=== PATIENT | female | born 1990 | race Caucasian/White ===

== ENCOUNTER 2017-12-20 00:37 | Emergency (ER) | payer OTHER, MEDICAID ==
--- NOTE | 2017-12-20 01:55 | ERNOTE ---
Abdominal HPI - General Chief Complaint: Abdominal Pain Time Seen by Provider: 12/20/17 01:50 Source: patient, RN notes reviewed Exam Limitations: no limitations - Immun/Allergies/Home Medications Immunizatons: IMMUNIZATION HX Immunizations Up to Date Yes History of Influenza Vaccine No Hx Pneumococcal Vaccination No Allergies/Adverse Reactions: Allergies amoxicillin [Amoxicillin] Allergy (Verified 12/20/17 00:52) Home Medications: HOME MEDICATIONS Ibuprofen [Motrin] 200 - 800 mg PO Q6H PRN #100 tab 07/13/16 [Last Taken Unknown ] HYDROcodone/ACETAMINOPHEN [[place] 5-325 Tablet] 1 - 2 tab PO Q6H PRN #16 tab [Last Taken Unknown] - History of Present Illness Narrative: Patient with lower abdominal pain for the last two months, that has worsened in the last 2 days. She thinks that it might be an ovarian cyst as this is similar pain to an ovarian cyst she had in the past. Timing: constant, getting worse Quality: moderate, aching, cramping Activities at Onset: none Modifying Factors - (Improves): Present: lying down Modifying Factors - (Worsens): Present: coughing, defecating, movement, exercise Associated Symptoms: Present: denies symptoms Prior Abdominal Problems: Present: similar symptoms Review of Systems - Review of Systems Constitutional: Absent: recent illness, fever, chills EYE: Present: no symptoms reported ENT: Absent: ear pain, sore throat Respiratory: Absent: shortness of breath, cough Cardiology: Absent: chest pain Gastrointestinal/Abdominal: Present: abdominal pain - left lower quadrant radiating medially. Absent: nausea, vomiting, diarrhea Genitourinary: Present: no symptoms reported Musculoskeletal: Absent: back pain, muscle pain, muscle stiffness Skin: Present: no symptoms reported Neurological: Present: no symptoms reported - Patient's Past Medical History Patient History - Medical: No pertinent hx Patient History - Cardiac/Respiratory: No pertinent hx Patient History - Cancer: No Hx of Cancer Patient History - Surgical Procedures: , T & A - Social History Living Situations: spouse Psych History: No pertinent hx Smoking Status: Never smoker Alcohol Use: occasionally Drug Use: none - Immunizations Immunizations Up to Date: Yes Hx Pneumococcal Vaccination: No History of Influenza Vaccine: No Physical Exam - Physical Exam General Appearance: Present: wd/wn, alert, moderate distress, obese Head Exam: Present: normal inspection, no evidence of injury Eye Exam: Normal inspection: bilateral, PERRL: bilateral, EOMI: bilateral Ears, Nose, Throat: Present: normal ENT inspection Neck: Present: normal inspection, nontender Respiratory: Present: no respiratory distress, normal breath sounds, no accessory muscle use, lungs clear Cardiovascular/Chest: Present: regular rate, rhythm, no murmur, normal peripheral pulses Gastrointestinal/Abdominal: Present: normal bowel sounds, nontender, nondistended, soft Pelvic Exam: Present: tender adnexa - left. Absent: active bleeding, discharge , lesions, cervical motion tendernes, tender uterus Back Exam: Present: normal inspection, normal range of motion Extremity Exam: Present: normal inspection, normal range of motion Neurological Exam: Present: alert, oriented, normal mood/affect, no motor/ sensory deficits Skin Exam: Present: normal color, warm/dry ED Progress - Results and Orders Patient's Lab Results:: I have reviewed the patient's lab results. Results and Orders: Laboratory Results - last 24 hr 12/20/17 12/20/17 12/20/17 02:10 02:10 02:10 WBC 10.9 H RBC 4.49 Hgb 12.9 Hct 38.7 MCV 86.2 MCH 28.7 MCHC 33.3 RDW 12.8 Plt Count 396 MPV 9.7 H Immature Gran % (Auto) 0.20 Immature Gran # (Auto) 0.02 Neutrophils % 54.9 Lymphocytes % 36.1 Monocytes % 5.1 Eosinophils % 3.2 H Basophils % 0.5 Nucleated RBC % 0.0 Neutrophils # 6.0 Lymphocytes # 3.9 H Monocytes # 0.6 Eosinophils # 0.4 Absolute Basophils 0.1 Sodium 140 Plasma Sodium 140 Potassium 3.9 Chloride 105 Carbon Dioxide 26.3 Anion Gap 12.6 BUN 13 Creatinine 0.86 Est GFR (Non-Af Amer) 85 BUN/Creatinine Ratio 15.1 Random Glucose 96 Calcium 9.2 Calcium Adj for Albumin 9.0 Total Bilirubin 0.3 AST 13 ALT 29 Alkaline Phosphatase 64 Total Protein 7.9 Albumin 3.9 Urine Color Urine Appearance Urine pH Ur Specific Accident Urine Protein Urine Glucose (UA) Urine Ketones Urine Blood Urine Nitrate Urine Bilirubin Urine Urobilinogen Ur Leukocyte Esterase Urine RBC Urine WBC Ur Epithelial Cells Urine Bacteria Urine Culture Comments Urine HCG, Qual Negative Urine Opiates Screen Barbiturate Screen Ur Phencyclidine Scrn Urine Amphetamine U Benzodiazepines Scrn Urine Cocaine Screen Urine Marijuana (THC) 12/20/17 12/20/17 02:10 02:10 WBC RBC Hgb Hct MCV MCH MCHC RDW Plt Count MPV Immature Gran % (Auto) Immature Gran # (Auto) Neutrophils % Lymphocytes % Monocytes % Eosinophils % Basophils % Nucleated RBC % Neutrophils # Lymphocytes # Monocytes # Eosinophils # Absolute Basophils Sodium Plasma Sodium Potassium Chloride Carbon Dioxide Anion Gap BUN Creatinine Est GFR (Non-Af Amer) BUN/Creatinine Ratio Random Glucose Calcium Calcium Adj for Albumin Total Bilirubin AST ALT Alkaline Phosphatase Total Protein Albumin Urine Color Pale yellow Urine Appearance Clear Urine pH 6.0 Ur Specific Accident 1.020 Urine Protein Negative Urine Glucose (UA) Negative Urine Ketones Negative Urine Blood Negative Urine Nitrate Negative Urine Bilirubin Negative Urine Urobilinogen Normal Ur Leukocyte Esterase Negative Urine RBC 0-5 Urine WBC 0-5 Ur Epithelial Cells 0-5 Urine Bacteria None seen Urine Culture Comments No culture indicated Urine HCG, Qual Urine Opiates Screen Negative Barbiturate Screen Negative Ur Phencyclidine Scrn Negative Urine Amphetamine Negative U Benzodiazepines Scrn Negative Urine Cocaine Screen Negative Urine Marijuana (THC) Negative - Vital Signs Patient's Vital Signs:: I have reviewed the patient's vital signs. Vital Signs: Vital Signs 12/20/17 00:44 Temperature 36.5 C Pulse Rate 76 Respiratory 14 Rate Blood Pressure 146/88 O2 Sat by Pulse 98 Oximetry - Progress/Reassessment Chief Complaint: Abdominal Pain Progress:: Unchanged Progress Note-Subjective: 12/20/17 04:04 Patient has a history of an ovarian cyst that resolved prior to needing any other treatment. She had pain only on the left adnexa with physical exam, not excruciating. There is no ultrasound at night at this time. I have counseled the patient extensively that she needs to return to the ED if her pain worsens. She has been counseled to follow up at the [facility] here in the next week for further evaluation and follow up. Plan - Plan Plan: [place] 5/325 mg #4 to go; follow up with [facility] this coming week. Return to the ED immediately if your pain gets a lot worse. Departure Clinical Impression: Ovarian cyst Qualifiers: Laterality: left Qualified Code(s): N83.202 - Unspecified ovarian cyst, left side - Departure Disposition: Home self-care Condition: Good Instructions: Ovarian Cyst, [id number] Referrals: Mansi Ridley CWHNP [[facility]] - (Call Friday for a follow up appointment in the next 3-5 days, sooner if your pain worsens. If your pain worsens rapidly, return to the Emergency Department for further evaluation and treatment.) Prescriptions: HYDROcodone/ACETAMINOPHEN [[place] 5-325 Tablet] 1 - 2 tab PO Q6H PRN #16 tab PRN Reason: Pain
[2017-12-20 02:16] LABS: Hematocrit 38.7 % (37.0-47.0); Hemoglobin 12.9 gm/dL (12.5-16.0); Mean Cell Volume 86.2 fl (78-100); Mean Corpuscular Hemoglobin 28.7 pg (27-31); Mean Corpuscular Hgb Conc 33.3 g/dl (32-36); Mean Platelet Volume 9.7 fl (6.0-9.5); Neutrophil % 54.9 % (42-75.0); Platelet Count 396 K/mm3 (150-450); Red Blood Count 4.49 M/mm3 (4.2-5.4); Red Cell Distribution Width 12.8 % (11.5-14.0); White Blood Count 10.9 K/mm3 (4.0-10.5)
[2017-12-20 02:29] LABS: Albumin * 3.9 gm/dl (3.4-5.0); Anion Gap 12.6 mmol/L (6.8-13.8); BUN/Creatinine Ratio 15.1 (9.0-21.6); Bilirubin, Total 0.3 mg/dL (0.0-1.1); Calcium * 9.2 mg/dL (7.9-10.9); Carbon Dioxide 26.3 mmol/L (24-32.6); Potassium 3.9 mmol/L (3.4-4.6); Total Protein 7.9 gm/dL (6.2-8.2)
[2017-12-20 02:31] LABS: Urine Bilirubin Negative (NEGATIVE); Urine Blood Negative /ul (NEGATIVE); Urine Ketone Negative (NEGATIVE); Urine Nitrite Negative (NEGATIVE); Urine Protein Negative (NEGATIVE); Urine Urobilinogen Normal (NORMAL)
[2017-12-20 02:33] LABS: Urine Appearance Clear; Urine Bacteria None Seen; Urine Color Pale Yellow; Urine RBC 0-5 /hpf (0-5); Urine WBC 0-5 /hpf (0-5)
[2017-12-20 02:41] LABS: Cocaine Ur Negative (NEGATIVE); Urine Barbiturate Negative (NEGATIVE); Urine Benzodiazepines Negative (NEGATIVE); Urine Opiates Negative (NEGATIVE); Urine PCP Negative (NEGATIVE); Urine THC Negative (NEGATIVE)
[2017-12-20] MEDS ORDERED: HYDROcodone/ACETAMINOPHEN 1 EACH TABLET PO ONE (03:50)
[2017-12-20] MEDS ORDERED: HYDROcodone/ACETAMINOPHEN 1 EACH TABLET ONE (03:53)
[2017-12-20 06:46] VITALS: BP 118/68
== END 2017-12-20 04:06 | disposition home or self-care (01) ==
LOC: ER 00:37
DX: N83.202 Unspecified ovarian cyst, left side